=== PATIENT | female | born 1980 | race Caucasian/White ===

== ENCOUNTER 2018-05-19 02:28 | Emergency (ER) | payer OTHER ==
[~2018-05-19] VITALS: Ht 162.6 cm; Wt 79.4 kg
[2018-05-19] MEDS ORDERED: GUAIFEN-CODEINE10 ML PO (03:18)
[2018-05-19 03:32] VITALS: BP 126/82
== END 2018-05-19 03:32 | disposition home or self-care (01) ==
LOC: ER 02:28
DX: J06.9 Acute upper respiratory infection, unspecified (principal)